=== PATIENT | male | born 1960 | race Caucasian/White ===

== ENCOUNTER 2024-11-12 19:49 | Emergency (ER) | payer OTHER ==
[~2024-11-12] VITALS: Ht 200.7 cm; Wt 122.4 kg
[2024-11-12 20:09] VITALS: TEMP 99
[2024-11-12 21:07] VITALS: BP 171/101; PULSE 93; RESP 16; O2SAT 98
--- NOTE | 2024-11-12 21:35 | Physician Documentation ---
History of Present Illness ~ Chief Complaint: Eye Pain Stated Complaint: EYE DISCOMFORT Time Seen by MD: 20:42 Mode of Arrival: POV HPI Patient is seen today with complaints of sudden vision change in left eye after he got hit in the back of the head by the carrera of his car while he was trying to work on it. Patient denies any loss of consciousness. Patient states he did have his lens replaced in the right eye and also has history of retinal detachment in the right eye. Patient is concerned for retinal detachment in his left eye currently. Medication Reconciliation Allergies: Coded Allergies: No Known Allergies (Unverified , 11/12/24) Review of Systems Constitutional: Denies: chills, fever, weakness Eyes: Denies: pain, blurred vision ENT: Denies: ear pain, nose pain, throat pain, mouth pain Respiratory: Denies: cough, shortness of breath Cardiovascular: Denies: chest pain, palpitations Gastrointestinal: Denies: abdominal pain, nausea, vomiting Genitourinary: Denies: burning, dysuria Male Genitalia: Denies: penile discharge, testicular pain Neurological: Denies: headache, dizziness Musculoskeletal: Denies: pain, swelling Integumentary: Denies: rash, lesions Allergic/Immunologic: Denies: hives, itching Hematologic/Lymphatic: Denies: no symptoms reported Psychiatric: Denies: depression, anxiety Physical Exam Vital Signs: Temperature: 99.0, Source: Oral, Heart Rate: 93, Respiratory Rate: 16, BP: 171/101, Pulse Oximetry: 98, Weight: 122.400 Oxygen Flow Rate: 0 Physical Exam General: Awake and Alert, no acute distress. HEENT: On exam does have cloudy lens of the left eye only consistent with cataract. Patient has clear lens on the right side. Tonometry results were within normal limits and unremarkable of bilateral eyes 15 on the right and 10 on the left. Conjunctiva pink, Sclera clear, Mucus Membranes moist. Neck: Supple without masses and tenderness. Resp: Unlabored. Lungs clear to auscultation bilaterally. Heart: Regular Rate and rhythm, normal S1 and S2 without murmur, rub or gallop. Musculoskeletal:/neuro: Facial muscle strength is intact of the face bilaterally. Abdomen: Soft and non tender no organomegaly Extremities: No cyanosis,clubbing or edema. Skin: Warm and Dry. Progress Results/Orders Results/Orders Orders - HOOVER,J LUIS R PAC Cta Neck/Head (11/12/24 21:31) Ct Head (11/12/24 21:49) Completed Orders - J LUIS HOOVER R PAC Electrocardiogram (11/12/24 21:31) Cbc/Diff (11/12/24 21:31) BMP (11/12/24 21:31) Pt Inr (11/12/24 21:31) PTT (11/12/24 21:31) Vital Signs 11/12/24 11/12/24 11/12/24 20:09 21:06 21:07 Temp 99.0 Pulse 85 93 Resp 16 16 B/P (MAP) 176/104 171/101 (124) Pulse Ox 96 98 O2 Flow Rate 0 Laboratory Tests Test 11/12/24 21:40 White Blood Count 7.9 Red Blood Count 5.09 Hemoglobin 15.3 Hematocrit 45.3 Mean Corpuscular Volume 89.0 Mean Corpuscular Hemoglobin 30.0 Mean Corpuscular Hemoglobin Concent 33.7 Red Cell Distribution Width 14.9 H Platelet Count 219 Mean Platelet Volume 6.8 L Neutrophils (%) (Auto) 63.0 Lymphocytes (%) (Auto) 20.7 L Monocytes (%) (Auto) 13.6 H Eosinophils (%) (Auto) 2.1 Basophils (%) (Auto) 0.6 Neutrophils # (Auto) 5.0 Lymphocytes # (Auto) 1.6 Monocytes # (Auto) 1.1 H Eosinophils # (Auto) 0.2 Basophils # (Auto) 0.0 CBC Comment Prothrombin Time 10.1 INR International Normalized Ratio 1.0 Activated Partial Thromboplast Time 27 Coagulation Comments Sodium Level 143 Potassium Level 4.3 Chloride Level 104 Carbon Dioxide Level 31.6 Anion Gap 7 L Blood Urea Nitrogen 14 Creatinine 1.08 Estimated GFR/1.73 m2 70 BUN/Creatinine Ratio 13.0 Glucose Level 104 Calcium Level 8.6 Albumin 3.5 Chemistry Comments Medical Decision Making Findings Patient is seen today with complaints of sudden vision change in left eye after he got hit in the back of the head by the carrera of his car while he was trying to work on it. Patient denies any loss of consciousness. Patient states he did have his lens replaced in the right eye and also has history of retinal detachment in the right eye. Patient is concerned for retinal detachment in his left eye currently. Tonometry results from physical exam were unremarkable of the bilateral eyes. We recommended CT angiogram of head and neck to rule out stroke based on ultrasound findings at the bedside however patient declined this exam stating he needs to go home as soon as possible. Patient was given strict instructions to follow up with ophthalmology tomorrow soon as possible for further eval and treatment. Patient voiced understanding. Patient states [facility] is able [facility] Patient will return to ED with any worsening, concerning or changing symptoms. Departure Disposition: 01 HOME / SELF CARE / HOMELESS Impression: Primary Impression: Vision changes Condition: Stable Discharge Instructions: Blurred Vision, Adult Additional Instructions: Tonometry results from physical exam were unremarkable of the bilateral eyes. We recommended CT angiogram of head and neck to rule out stroke based on ultrasound findings at the bedside however patient declined this exam stating he needs to go home as soon as possible. Patient was given strict instructions to follow up with ophthalmology tomorrow soon as possible for further eval and treatment. Patient voiced understanding. Patient states he is able to see an [facility]. Patient will return to ED with any worsening, concerning or changing symptoms. Referrals: NO PRIMARY CARE PROVIDER (PCP) Signature Scribe Signature: No scribe Attestation: No scribe J LUIS HOOVER November 12, 2024 21:35
--- NOTE | 2024-11-12 21:47 | ELECTROCARDIOGRAPH REPORT ---
[facility] Test Date: 2024-11-12 Test Time: 21:45:34 Pat Name: PRANEETH DRY Department: EMERGENCY ROOM Room: Gender: M Agriculture Science Teacher: DIGNA : 1960 Requested By: J LUIS HOOVER Order Number: [id number] Reading MD: Measurements Intervals [place] Rate: 87 P: 45 UT: 189 QRS: -18 QRSD: 104 T: 67 QT: 397 QTc: 478 Interpretive Statements Sinus rhythm Left ventricular hypertrophy Borderline prolonged QT interval Please click the below link to view image of tracing.
[2024-11-12 21:48] LABS: BASOPHILS % (AUTO) 0.6 % (0-1); EOSINOPHILS # (AUTO) 0.2 X10'3 (0-0.9); EOSINOPHILS % (AUTO) 2.1 % (0-6); HEMATOCRIT 45.3 % (42.0-52.0); HEMOGLOBIN 15.3 g/dl (14.0-17.9); LYMPHOCYTES # (AUTO) 1.6 X10'3 (1.1-4.8); LYMPHOCYTES % (AUTO) 20.7 % (21-51); MEAN CORPUSCULAR HGB CONC 33.7 g/dL (33.0-36.5); MEAN PLATELET VOLUME 6.8 FL (7.4-10.4); MONOCYTES # (AUTO) 1.1 X10'3 (0-0.9); MONOCYTES % (AUTO) 13.6 % (2-12); PLATELET COUNT 219 X10'3 (140-440); RED BLOOD COUNT 5.09 X10'6 (4.70-6.10); RED CELL DISTRIBUTION WIDTH 14.9 % (11.5-14.5); WHITE BLOOD COUNT 7.9 X10'3 (4.5-11.0)
[2024-11-12 21:58] LABS: ALBUMIN 3.5 G/DL (3.4-5.0); ANION GAP 7 (8-16); BLOOD UREA NITROGEN 14 MG/DL (7-18); CALCIUM 8.6 MG/DL (8.5-10.1); CHLORIDE 104 MMOL/L (99-107); CREATININE 1.08 MG/DL (0.60-1.10); GLUCOSE 104 MG/DL (70-104); POTASSIUM 4.3 MMOL/L (3.5-5.1); SODIUM 143 MMOL/L (135-145); TOTAL CARBON DIOXIDE 31.6 MMOL/L (24-32); eCRCL 95 ML/MIN; eGFR 70 ML/MIN
[2024-11-12 22:01] LABS: APTT 27 SECONDS (22-32); PROTHROMBIN TIME 10.1 SECONDS (9.0-12.0)
== END 2024-11-12 22:36 | disposition home or self-care (01) ==
LOC: ER 19:50
DX: H53.9 Unspecified visual disturbance (principal); I49.8 Other specified cardiac arrhythmias
CPT/HCPCS: 36415; 80048; 85025; 85610; 85730; 93005; 99284